=== PATIENT | female | born 1990 | race Caucasian/White ===

== ENCOUNTER 2016-09-05 11:51 | Emergency (ER) | payer SELFPAY ==
[2016-09-05 12:04] VITALS: TEMP 98.3; BMI 28.4
[2016-09-05] MEDS ORDERED: NS 1,000 ML IV ONE (12:12)
[2016-09-05] MEDS ORDERED: ONDANSETRON HCL 4 MG/2 ML VIAL IV ONE (12:12)
[2016-09-05] MEDS ORDERED: DIATRIZOATE MEGLMINE/SODIUM 30 ML BOTTLE PO ONE (12:12)
[2016-09-05] MEDS ORDERED: HYDROmorphone 1 MG INJECTION IV ONE (12:12)
[2016-09-05 12:31] LABS: LEUKOCYTES/URINE NEG (NEGATIVE); NITRITE/URINE NEG (NEGATIVE); URINE OCCULT BLOOD NEG (NEG/TRACE)
[2016-09-05 12:32] LABS: AUTOMATED BASOPHIL 0.6 % (0-2); AUTOMATED EOSINOPHIL 1.1 % (0-5); AUTOMATED LYMPH 33.2 % (17-44); AUTOMATED MONOCYTE 5.7 % (3-10); AUTOMATED NEUTROPHIL 59.4 % (45-76); MPV 10.6 fL (7.4-10.4)
[2016-09-05 12:34] LABS: BLOOD UREA NITROGEN 14 MG/DL (7-17); CALCIUM 9.4 MG/DL (8.4-10.2); CALCULATED OSMOLALITY 269 MOs/Kg (270-290); CHLORIDE 105 mEq/L (98-107); GLUCOSE 86 mg/dL (70-99); SODIUM LEVEL 140 mEq/L (137-146); TOTAL PROTEIN 6.9 G/DL (6.3-8.2)
[2016-09-05] MEDS ORDERED: Pharmacy Review for Metformin - IV Contrast Given SCH ×2 (13:00)
--- NOTE | 2016-09-05 14:42 | EDPRACDOC ---
- General Information Information Source: Patient Mode Of Arrival: Car - History of Present Illness Onset: 6 WKS Pain Location: Reports: Periumbilical Pain Context: Reports: Spontaneous Pain Severity: Mild Pain Quality: Reports: Aching Pain Radiation: Reports: No Radiation Last Menstrual Period: 08/28/16 Adult Abdominal History: Denies: Abdominal Surgery Female Abdominal History: Denies: Abdominal Surgery Modifying Factors: improves with: Nothing Female Associated Signs & Symptoms: Reports: Nausea Oral Intake: Normal Urinary Output: Normal <Ciro Jaramillo - Last Filed: 09/05/16 14:41> <Macarena East - Last Filed: 09/05/16 15:22> - General Information Chief Complaint: Abdominal Pain Stated Complaint: RLQ PAIN & MIGRAINE EMANUEL Time Seen by Provider: 09/05/16 12:12 Home Medications: Home Medications Ketorolac Tromethamine 10 mg PO Q6H PRN #20 tab 09/05/16 Allergies/Adverse Reactions: Allergies Allergy/AdvReac Type Severity Reaction Status Date / Time No Known Allergies Allergy Verified 09/05/16 12:04 ED Past Medical History - History Reviewed Yes Nurses notes reviewed and agree except as marked - Patient Medical History Psychological History: Reports: Depression Surgical History: Reports: Other (BTL) - Social Medical History Smoking Status: Heavy tobacco smoker (5 or more cigarettes/day or daily pipe/ cigar) <Ciro Jaramillo - Last Filed: 09/05/16 14:41> EDM Review of Systems - Review of Systems ROS Negative Except as Marked: Yes All systems reviewed and were negative except as marked <Ciro Jaramillo - Last Filed: 09/05/16 14:41> - Physical Exam Constitutional: Alert (Awake), No apparent distress Oriented to: Time, Person, Place - HEENT Head: Normal ( normocephalic) Eye Exam: Normal (PERRL, EOMI, Sclera white) Oropharynx: Normal (Pharynx:Moist without exudate,Gums-no swelling) Tympanic Membrane: Normal ENT EAC: Normal TMJ: Normal Nose: No Symptoms Reported (septum midline) Neck: Normal (FROM, trachea at midline) - Respiratory/Cardiovascular Respiratory: Normal - CTA (BBS clear to auscultation without adventitious sounds ) Cardiovascular: Normal (RRR without murmur, gallop or rub) - GI Auscultation: Normal (NABS) Palpation: Normal (Soft,No rebound or guarding, non distended) Tenderness: Non tender Fierro's Sign: Negative - Musculoskeletal Back: Normal (Non-Tender) Extremities: Normal (Normal tone, Pulses 2+ No cyanosis or edema, FROM) - Integumentary Skin: Normal, Warm, Dry Lymphatics: Normal (no adenopathy) - Neurologic Memory Impaired: Normal Motor Function: Normal (Normal tone, Pulses 2+ No cyanosis or edema, FROM) Cranial Nerve: Normal (CN II-X11 intact sensation, strength 5/5) Cerebellar: Normal Mood Description: Normal Perception: Normal <Ciro Jaramillo - Last Filed: 09/05/16 14:41> - Results 09/05/16 12:15 09/05/16 12:15 <Ciro Jaramillo - Last Filed: 09/05/16 14:41> - Results 09/05/16 12:15 09/05/16 12:15 - Diagnostic Imaging Abdomen Image interpreted by: Radiologist <Macarena East - Last Filed: 09/05/16 15:22> - Results WBC 7.4 xk/uL (3.8-10.8) 09/05/16 12:15 RBC 4.76 xM/uL (4.20-5.40) 09/05/16 12:15 Hgb 14.8 g/dL (12.0-16.0) 09/05/16 12:15 Hct 43.1 % (36-47) 09/05/16 12:15 MCV 91 fL (81-99) 09/05/16 12:15 MCH 31.0 pg (27-32) 09/05/16 12:15 MCHC 34.3 g/dl (33-36) 09/05/16 12:15 RDW 13.0 % (11.5-14.5) 09/05/16 12:15 Plt Count 137 xk/uL (130-400) 09/05/16 12:15 MPV 10.6 fL (7.4-10.4) H 09/05/16 12:15 Neut % (Auto) 59.4 % (45-76) 09/05/16 12:15 Lymph % (Auto) 33.2 % (17-44) 09/05/16 12:15 [place] % (Auto) 5.7 % (3-10) 09/05/16 12:15 Eos % (Auto) 1.1 % (0-5) 09/05/16 12:15 Baso % (Auto) 0.6 % (0-2) 09/05/16 12:15 Absolute Neuts (auto) 4.37 xk/uL (1.7-8.2) 09/05/16 12:15 Absolute Lymphs (auto) 2.44 xk/uL (0.65-4.75) 09/05/16 12:15 Sodium 140 mEq/L (137-146) 09/05/16 12:15 Potassium 4.0 mEq/L (3.5-5.1) 09/05/16 12:15 Chloride 105 mEq/L (98-107) 09/05/16 12:15 Carbon Dioxide 27 mMOL/L (22-33) 09/05/16 12:15 Anion Gap 12 mEq/L (8-16) 09/05/16 12:15 BUN 14 MG/DL (7-17) 09/05/16 12:15 Creatinine 0.60 MG/DL (0.52-1.04) 09/05/16 12:15 Estimated GFR (MDRD) > 60 mL/min (>=60) 09/05/16 12:15 Glucose 86 mg/dL (70-99) 09/05/16 12:15 Calculated Osmolality 269 MOs/Kg (270-290) L 09/05/16 12:15 Calcium 9.4 MG/DL (8.4-10.2) 09/05/16 12:15 Total Bilirubin 1.0 MG/DL (0.2-1.3) 09/05/16 12:15 AST 19 IU/L (14-36) 09/05/16 12:15 ALT 47 IU/L (9-52) 09/05/16 12:15 Alkaline Phosphatase 60 IU/L (38-126) 09/05/16 12:15 Total Protein 6.9 G/DL (6.3-8.2) 09/05/16 12:15 Albumin 4.3 G/DL (3.5-5.0) 09/05/16 12:15 Lipase 40 U/L (23-300) 09/05/16 12:15 Urine Color Yellow 09/05/16 12:07 Urine Clarity Clear 09/05/16 12:07 Urine pH 6.0 (5.0-8.0) 09/05/16 12:07 Ur Specific [place] 1.020 (1.003-1.035) 09/05/16 12:07 Urine Protein Neg (NEG/TRACE) 09/05/16 12:07 Urine Glucose (UA) Neg (NEGATIVE) 09/05/16 12:07 Urine Ketones Neg (NEGATIVE) 09/05/16 12:07 Urine Occult Blood Neg (NEG/TRACE) 09/05/16 12:07 Urine Nitrite Neg (NEGATIVE) 09/05/16 12:07 Urine Bilirubin Neg (NEGATIVE) 09/05/16 12:07 Urine Urobilinogen <2.0 MG/DL (0-1) 09/05/16 12:07 Ur Leukocyte Esterase Neg (NEGATIVE) 09/05/16 12:07 Urine RBC 2-5 (0-5) 09/05/16 12:07 Urine WBC 2-5 (0-5) 09/05/16 12:07 Ur Epithelial Cells 2+ 09/05/16 12:07 Urine Bacteria 1+ (NEG/FEW) H 09/05/16 12:07 Urine Mucus Sm amt (NEG/OCC) 09/05/16 12:07 Urine Test Neg (NEGATIVE) 09/05/16 12:07 Lab Results 09/05/16 09/05/16 09/05/16 12:15 12:15 12:07 WBC 7.4 RBC 4.76 Hgb 14.8 Hct 43.1 MCV 91 MCH 31.0 MCHC 34.3 RDW 13.0 Plt Count 137 MPV 10.6 H Neut % (Auto) 59.4 Lymph % (Auto) 33.2 [place] % (Auto) 5.7 Eos % (Auto) 1.1 Baso % (Auto) 0.6 Absolute Neuts (auto) 4.37 Absolute Lymphs (auto) 2.44 Sodium 140 Potassium 4.0 Chloride 105 Carbon Dioxide 27 Anion Gap 12 BUN 14 Creatinine 0.60 Estimated GFR (MDRD) > 60 Glucose 86 Calculated Osmolality 269 L Calcium 9.4 Total Bilirubin 1.0 AST 19 ALT 47 Alkaline Phosphatase 60 Total Protein 6.9 Albumin 4.3 Lipase 40 Urine Color Yellow Urine Clarity Clear Urine pH 6.0 Ur Specific [place] 1.020 Urine Protein Neg Urine Glucose (UA) Neg Urine Ketones Neg Urine Occult Blood Neg Urine Nitrite Neg Urine Bilirubin Neg Urine Urobilinogen <2.0 Ur Leukocyte Esterase Neg Urine RBC 2-5 Urine WBC 2-5 Ur Epithelial Cells 2+ Urine Bacteria 1+ H Urine Mucus Sm amt Urine Test 09/05/16 12:07 WBC RBC Hgb Hct MCV MCH MCHC RDW Plt Count MPV Neut % (Auto) Lymph % (Auto) [place] % (Auto) Eos % (Auto) Baso % (Auto) Absolute Neuts (auto) Absolute Lymphs (auto) Sodium Potassium Chloride Carbon Dioxide Anion Gap BUN Creatinine Estimated GFR (MDRD) Glucose Calculated Osmolality Calcium Total Bilirubin AST ALT Alkaline Phosphatase Total Protein Albumin Lipase Urine Color Urine Clarity Urine pH Ur Specific [place] Urine Protein Urine Glucose (UA) Urine Ketones Urine Occult Blood Urine Nitrite Urine Bilirubin Urine Urobilinogen Ur Leukocyte Esterase Urine RBC Urine WBC Ur Epithelial Cells Urine Bacteria Urine Mucus Urine Test Neg (Ciro Jaramillo) (Macarena East) - Diagnostic Imaging Abdomen 09/05/16 15:19 IMPRESSION: 1. No acute inflammatory process within abdomen. 2. Normal appendix. No pericecal inflammation. 3. No small bowel or colonic obstruction. 4. Normal size anteflexed uterus. A right tubal ligation clip in expected location of the right fallopian tube. Probable dislodged left tubal ligation clip located in left lower quadrant anteriorly just anterior to descending colon please see axial image 62. 5. No adnexal mass. Dominant follicle within left ovary measures 1.2 cm. (Macarena East) - Departure Yes I personally saw and evaluated the patient. Disposition: Home Education/Counseling Given To: Patient, Family Member Education/Counseling Given Regarding: Diagnosis, Treatment, Prognosis <Ciro Jaramillo - Last Filed: 09/05/16 14:41> Decision Time to Discharge: 15:19 <Macarena East - Last Filed: 09/05/16 15:22> - Departure Condition: Good Final Diagnosis: Abdominal pain, possible dislodged fallopian tube clip Instructions: Acute Abdominal Pain (ED) Referrals: Marley Michael MD [Staff Physician] - One Week None,No Provider [Primary Care Provider] - One Week Clair Ford DO [Staff Physician] - One Week Prescriptions: New Ketorolac Tromethamine 10 mg PO Q6H PRN #20 tab PRN Reason: Pain Additional Instructions: USE ANOTHER FORM OF CONTROL UNTIL SEEN BY OBGYN
--- NOTE | 2016-09-05 15:16 | DIRPT ---
CLINICAL DATA: Right lower quadrant pain for 6 weeks EXAM: CT ABDOMEN AND PELVIS WITH CONTRAST TECHNIQUE: Multidetector CT imaging of the abdomen and pelvis was performed using the standard protocol following bolus administration of intravenous contrast. CONTRAST: 100 cc Isovue COMPARISON: 04/29/2016 FINDINGS: Lung bases are unremarkable. Sagittal images of the spine are unremarkable small hiatal hernia. Enhanced liver, pancreas, spleen and adrenal glands are unremarkable. No calcified gallstones are noted within gallbladder. Abdominal aorta is unremarkable. Enhanced kidneys are symmetrical in size. No hydronephrosis or hydroureter. No focal renal mass. No small bowel obstruction. No ascites or free air. No adenopathy. Normal appendix is clearly visualize in axial image 48. The terminal ileum is unremarkable. No colonic obstruction. Contrast material is noted in distal sigmoid colon and rectum. Some colonic gas noted within rectum. The uterus is anteflexed. The uterus is normal size. Please note a right fallopian tubal clip is noted in right adnexal region. The previous left tubal ligation surgical clips is not in the left adnexal region. Probable dislodged in left lower quadrant anteriorly just anterior to descending colon please see axial image 62. No colitis or diverticulitis. The urinary bladder is empty limiting its assessment. Small nonspecific bilateral inguinal lymph nodes are noted. No ovarian mass. A dominant follicle within left ovary measures 1.2 cm. IMPRESSION: 1. No acute inflammatory process within abdomen. 2. Normal appendix. No pericecal inflammation. 3. No small bowel or colonic obstruction. 4. Normal size anteflexed uterus. A right tubal ligation clip in expected location of the right fallopian tube. Probable dislodged left tubal ligation clip located in left lower quadrant anteriorly just anterior to descending colon please see axial image 62. 5. No adnexal mass. Dominant follicle within left ovary measures 1.2 cm. Electronically Signed By: John Montana M.D. On: 09/05/2016 15:13
[2016-09-05 15:59] VITALS: BP 141/74; PULSE 60
== END 2016-09-05 15:48 | disposition home or self-care (01) ==
LOC: ED 11:51
DX: R10.9 Unspecified abdominal pain (principal)
CPT/HCPCS: 36415; 74177; 80053; 81001; 81025; 83690; 85025; 96361; 96374; 96375; 99284; A9698; J1170; J2405